=== PATIENT | female | born 2000 | race Hispanic/Latino ===

== ENCOUNTER 2019-10-29 18:17 | Emergency (ER) | payer OTHER ==
[~2019-10-29] VITALS: Ht 149.9 cm; Wt 74.8 kg
[~2019-10-29 18:17] MED LIST: NO MEDS
--- OUTSIDE RECORDS SUMMARY | 2019-10-29 18:19 | XMS REPORT ---
Author Author [facility] Address Unknown Phone Unavailable Care Team Providers Care Salvager Name Role Phone Unavailable Unavailable Payers Payer Name Policy Type Policy Number Effective Date Expiration Date Problems This patient has no known problems. Allergies, Adverse Reactions, Alerts Allergy Name Allergy Type Status Severity Reaction(s) Onset Date Inactive Date Treating Clinician Comments No Known Allergies DA Active U 2019-10-01 00:00:00 No Known Allergies DA Active U 2019-08-22 00:00:00 No Known Allergies DA Active U 2018-11-29 00:00:00 No Known Allergies DA Active U 2018-05-19 00:00:00 No Known Allergies DA Active U 2018-01-08 00:00:00 Medications This patient has no known medications. Results Test Description Test Time Test Comments Text Results Atomic Results Result Comments CBC W/AUTO DIFF 2019-10-03 07:18:00 WHITE BLOOD CELL (test code=WBC) 20.90 x10 3/uL 4.5-11.0 RED BLOOD CELL (test code=RBC) 3.36 x10 6/uL 3.54-5.02 HEMOGLOBIN (test code=HGB) 9.5 g/dL 11.0-15.0 HEMATOCRIT (test code=HCT) 30.2 % 33.0-45.0 MEAN CELL VOLUME (test code=MCV) 89.9 fL 81.0-99.0 MEAN CELL HGB (test code=MCH) 28.3 pg 27.0-33.0 MEAN CELL HGB CONCETRATION (test code=MCHC) 31.5 g/dL 33.0-37.0 RED CELL DISTRIBUTION WIDTH CV (test code=RDW) 14.2 % 11.5-14.5 RED CELL DISTRIBUTION WIDTH SD (test code=RDW-SD) 45.7 fL 37.0-54.0 PLATELET COUNT (test code=PLT) 277 x10 3/uL 150-400 MEAN PLATELET VOLUME (test code=MPV) 9.2 fL 7.0-9.0 NEUTROPHIL % (test code=NT%) 77.9 % 56.0-77.0 IMMATURE GRANULOCYTE % (test code=IG%) 0.6 % 0.0-2.0 LYMPHOCYTE % (test code=LY%) 14.5 % 14.0-32.0 MONOCYTE % (test code=MO%) 6.6 % 4.8-9.0 EOSINOPHIL % (test code=EO%) 0.2 % 0.3-3.7 BASOPHIL % (test code=BA%) 0.2 % 0.0-2.0 NUCLEATED RBC % (test code=NRBC%) 0.0 % 0-0 NEUTROPHIL # (test code=NT#) 16.26 x10 3/uL 2.0-7.6 IMMATURE GRANULOCYTE # (test code=IG#) 0.13 x10 3/uL 0.00-0.03 LYMPHOCYTE # (test code=LY#) 3.04 x10 3/uL 1.0-3.8 MONOCYTE # (test code=MO#) 1.38 x10 3/uL 0.1-0.8 EOSINOPHIL # (test code=EO#) 0.04 x10 3/uL 0.0-0.2 BASOPHIL # (test code=BA#) 0.05 x10 3/uL 0.0-0.2 NUCLEATED RBC # (test code=NRBC#) 0.00 x10 3/uL 0.0-0.1 MANUAL DIFF REQUIRED (test code=MDIFF) NO CBC W/AUTO [id number] 16:11:00* Test Item Value Reference Range Comments WHITE BLOOD CELL (test code=WBC) 12.42 x10 3/uL 4.5-11.0 RED BLOOD CELL (test code=RBC) 3.95 x10 6/uL 3.54-5.02 HEMOGLOBIN (test code=HGB) 11.4 g/dL 11.0-15.0 HEMATOCRIT (test code=HCT) 35.3 % 33.0-45.0 MEAN CELL VOLUME (test code=MCV) 89.4 fL 81.0-99.0 MEAN CELL HGB (test code=MCH) 28.9 pg 27.0-33.0 MEAN CELL HGB CONCETRATION (test code=MCHC) 32.3 g/dL 33.0-37.0 RED CELL DISTRIBUTION WIDTH CV (test code=RDW) 13.9 % 11.5-14.5 RED CELL DISTRIBUTION WIDTH SD (test code=RDW-SD) 44.8 fL 37.0-54.0 PLATELET COUNT (test code=PLT) 341 x10 3/uL 150-400 MEAN PLATELET VOLUME (test code=MPV) 8.6 fL 7.0-9.0 NEUTROPHIL % (test code=NT%) 70.1 % 56.0-77.0 IMMATURE GRANULOCYTE % (test code=IG%) 0.4 % 0.0-2.0 LYMPHOCYTE % (test code=LY%) 23.1 % 14.0-32.0 MONOCYTE % (test code=MO%) 5.6 % 4.8-9.0 EOSINOPHIL % (test code=EO%) 0.6 % 0.3-3.7 BASOPHIL % (test code=BA%) 0.2 % 0.0-2.0 NUCLEATED RBC % (test code=NRBC%) 0.0 % 0-0 NEUTROPHIL # (test code=NT#) 8.71 x10 3/uL 2.0-7.6 IMMATURE GRANULOCYTE # (test code=IG#) 0.05 x10 3/uL 0.00-0.03 LYMPHOCYTE # (test code=LY#) 2.87 x10 3/uL 1.0-3.8 MONOCYTE # (test code=MO#) 0.69 x10 3/uL 0.1-0.8 EOSINOPHIL # (test code=EO#) 0.07 x10 3/uL 0.0-0.2 BASOPHIL # (test code=BA#) 0.03 x10 3/uL 0.0-0.2 NUCLEATED RBC # (test code=NRBC#) 0.00 x10 3/uL 0.0-0.1 MANUAL DIFF REQUIRED (test code=MDIFF) NO RAPID PLASMA [id number] 11:54:00* Test Item Value Reference Range Comments RAPID PLASMA REAGIN (test code=RPR) NONREACTIVE NONREACTIVE AG HEPATITIS B [id number] 11:54:00* Test Item Value Reference Range Comments AG HEPATITIS B SURFACE (test code=HBSAG) NON REACTIVE INDEX NonReactive AB HIV 1 11:54:00* Test Item Value Reference Range Comments AB HIV 1 2 (test code=RFJ06ER) NONREACTIVE INDEX NONREACTIVE RAPID PLASMA [id number] 15:01:00* Test Item Value Reference Range Comments RAPID PLASMA REAGIN (test code=RPR) NONREACTIVE AG HEPATITIS B [id number] 15:01:00* Test Item Value Reference Range Comments AG HEPATITIS B SURFACE (test code=HBSAG) NON REACTIVE INDEX NonReactive AB HIV 1 15:01:00* Test Item Value Reference Range Comments AB HIV 1 2 (test code=QRM65YC) NONREACTIVE INDEX NONREACTIVE RAPID PLASMA [id number] 12:01:00* Test Item Value Reference Range Comments RAPID PLASMA REAGIN (test code=RPR) NONREACTIVE AG HEPATITIS B [id number] 12:01:00* Test Item Value Reference Range Comments AG HEPATITIS B SURFACE (test code=HBSAG) NON REACTIVE INDEX NonReactive AB HIV 1 12:01:00* Test Item Value Reference Range Comments AB HIV 1 2 (test code=MND79CT) INDEX NONREACTIVE CBC W/AUTO [id number] 11:26:00* Test Item Value Reference Range Comments WHITE BLOOD CELL (test code=WBC) 12.52 x10 3/uL 4.5-11.0 RED BLOOD CELL (test code=RBC) 4.04 x10 6/uL 3.54-5.02 HEMOGLOBIN (test code=HGB) 11.4 g/dL 11.0-15.0 HEMATOCRIT (test code=HCT) 36.4 % 33.0-45.0 MEAN CELL VOLUME (test code=MCV) 90.1 fL 81.0-99.0 MEAN CELL HGB (test code=MCH) 28.2 pg 27.0-33.0 MEAN CELL HGB CONCETRATION (test code=MCHC) 31.3 g/dL 33.0-37.0 RED CELL DISTRIBUTION WIDTH CV (test code=RDW) 13.7 % 11.5-14.5 RED CELL DISTRIBUTION WIDTH SD (test code=RDW-SD) 44.8 fL 37.0-54.0 PLATELET COUNT (test code=PLT) 370 x10 3/uL 150-400 MEAN PLATELET VOLUME (test code=MPV) 8.7 fL 7.0-9.0 NEUTROPHIL % (test code=NT%) 71.1 % 56.0-77.0 IMMATURE GRANULOCYTE % (test code=IG%) 0.7 % 0.0-2.0 LYMPHOCYTE % (test code=LY%) 21.9 % 14.0-32.0 MONOCYTE % (test code=MO%) 5.4 % 4.8-9.0 EOSINOPHIL % (test code=EO%) 0.6 % 0.3-3.7 BASOPHIL % (test code=BA%) 0.3 % 0.0-2.0 NUCLEATED RBC % (test code=NRBC%) 0.0 % 0-0 NEUTROPHIL # (test code=NT#) 8.91 x10 3/uL 2.0-7.6 IMMATURE GRANULOCYTE # (test code=IG#) 0.09 x10 3/uL 0.00-0.03 LYMPHOCYTE # (test code=LY#) 2.74 x10 3/uL 1.0-3.8 MONOCYTE # (test code=MO#) 0.67 x10 3/uL 0.1-0.8 EOSINOPHIL # (test code=EO#) 0.07 x10 3/uL 0.0-0.2 BASOPHIL # (test code=BA#) 0.04 x10 3/uL 0.0-0.2 NUCLEATED RBC # (test code=NRBC#) 0.00 x10 3/uL 0.0-0.1 MANUAL DIFF REQUIRED (test code=MDIFF) NO AMNISURE (ROM) [id number] 09:01:00* Test Item Value Reference Range Comments AMNISURE (ROM) TEST (test code=AMNI) NEGATIVE NEGATIVE OPENED:07-25-2019 BASIC METABOLIC [id number] 15:07:00* Test Item Value Reference Range Comments SODIUM (test code=NA) 136 mEq/L 134-147 POTASSIUM (test code=K) 3.8 mEq/L 3.4-5.0 CHLORIDE (test code=CL) 105 mEq/L 100-108 CARBON DIOXIDE (test code=CO2) 25 mEq/L 21-33 ANION GAP (test code=GAP) 10 0-20 GLUCOSE (test code=GLU) 81 mg/dL 70-110 BLOOD UREA NITROGEN (test code=BUN) 12 mg/dL 7-18 GLOMERULAR FILTRATION RATE (test code=GFR) 128.8 110-120 Units of measure=ml/min/1.73 m2 CREATININE (test code=CREAT) 0.6 mg/dL 0.6-1.3 CALCIUM (test code=CA) 9.1 mg/dL 8.0-10.5 Is patient ? YHOW MANY WEEKS? 5 WEEKSHCG [id number] 15:07:00* Test Item Value Reference Range Comments HCG SERUM (test code=HCG) < 1 0 - 6 NOT > 6 SUGGESTIVE OF EARLY RISES TWO FOLD EVERY 2 DAYS; SUGGEST RE CONFIRMING AFTER 2 DAYS. 150,000-200,[address] TRIMESTER 10,000 - 50,000 2ND & 3RD TRIMESTERResults in harshal-International Units/mL Is patient ? YHOW MANY WEEKS? 5 WEEKSBASIC METABOLIC [id number] 15:04:00* Test Item Value Reference Range Comments SODIUM (test code=NA) 136 mEq/L 134-147 POTASSIUM (test code=K) 3.8 mEq/L 3.4-5.0 CHLORIDE (test code=CL) 105 mEq/L 100-108 CARBON DIOXIDE (test code=CO2) 25 mEq/L 21-33 ANION GAP (test code=GAP) 10 0-20 GLUCOSE (test code=GLU) 81 mg/dL 70-110 BLOOD UREA NITROGEN (test code=BUN) 12 mg/dL 7-18 GLOMERULAR FILTRATION RATE (test code=GFR) 128.8 110-120 Units of measure=ml/min/1.73 m2 CREATININE (test code=CREAT) 0.6 mg/dL 0.6-1.3 CALCIUM (test code=CA) 9.1 mg/dL 8.0-10.5 Is patient ? YHOW MANY WEEKS? 5 WEEKSHCG [id number] 15:04:00* Test Item Value Reference Range Comments HCG SERUM (test code=HCG) Is patient ? YHOW MANY WEEKS? 5 WEEKS- US TRANSVAGINAL NON [id number] 15:03:00 Name: CHINTAN ARMIJO [facility] José Miguel Urbina : 2000 Age/S: 18 / F [address] [place] [address] Unit #: [id number] Loc: [place] [address] Phys: Don Ireland DO Acct: [id number] Dis Date: Status: REG ER PHONE #: [phone] Exam Date: 10/08/2018 1440 FAX #: [phone] Reason: PELVIC PAIN, SPOTTING EXAMS: CPT CODE: [id number] [place] [address] TRANSABDOMINAL TRANSVAGINAL PELVIC ULTRASOUND. HISTORY: Pelvic pain and bleeding. Last menstrual period 09/07/2018. Serum beta hCG result pending. COMPARISON: No priors available. TRANSABDOMINAL IMAGES: The uterus is 6.3 x 3.8 x 4.5 cm. The endometrial stripe is not adequately visualized on transabdominal images. The right ovary is 3.0 x 2.0 x 2.8 cm. The left ovary is 3.6 x 1.9 x 3.0 cm. Blood flow documented to both ovaries on Doppler ultrasound images. No pelvic fluid collections. Transvaginal imaging will be performed to evaluate the endometrial stripe and better evaluate both ovaries. TRANSVAGINAL IMAGES: On transvaginal images the endometrial stripe is 4 mm thick and homogeneous. No intrauterine gestational sac seen. The right ovary is 3.6 x 1.9 x 3.0 cm. Multiple very small follicular cysts. The left ovary is 2.2 x 1.8 x 2.5 cm. There are several follicular cysts within the left ovary is well. There is blood flow to each ovary on Doppler ultrasound images. There is no free pelvic fluid. IMPRESSION: 1. No evidence for intrauterine . Endometrial stripe is normal in appearance and not thickened. 2. Multiple follicular cyst right ovary and a few less in the left ovary. END IMPRESSION SL: [id number] at 1503 Reported and signed by: Shahram Martinez M.D. PAGE 1 Signed Report (CONTINUED) Name: CHINTAN ARMIJO : 2000 Age/S: 18 / F [address] [place] [address] Unit #: [id number] Loc: [place] [address] Phys: BekaDonslick HOLCOMB Acct: [id number] Dis Date: Status: REG ER PHONE #: [phone] Exam Date: 10/08/2018 1449 FAX #: [phone] Reason: PELVIC PAIN, SPOTTING EXAMS: CPT CODE: [id number] [place] [address] < Continued> CC: Don Ireland DO Technologist: Ana Cristina Posadas RDMS(AB)(OB) Trnscb Date/Time: 10/08/2018 (1503) [email or web address] Orig Print D/T: S: 10/08/2018 (1506) Probe: [id number] PAGE 2 Signed Report - US PELVIS [id number] 15:03:00 Name: CHINTAN ARMIJO : 2000 Age/S: 18 / F [address] [place] [address] Unit #: [id number] Loc: [place] [address] Phys: Don Ireland DO Acct: [id number] Dis Date: Status: REG ER PHONE #: [phone] Exam Date: 10/08/2018 1449 FAX #: [phone] Reason: Pelvic Pain, bleeding EXAMS: CPT CODE: [id number] US PELVIS COMPLETE 48000 TRANSABDOMINAL TRANSVAGINAL PELVIC ULTRASOUND. HISTORY: Pelvic pain and bleeding. Last menstrual period 09/07/2018. Serum beta hCG result pending. COMPARISON: No priors available. TRANSABDOMINAL IMAGES: The uterus is 6.3 x 3.8 x 4.5 cm. The endometrial stripe is not adequately visualized on transabdominal images. The right ovary is 3.0 x 2.0 x 2.8 cm. The left ovary is 3.6 x 1.9 x 3.0 cm. Blood flow documented to both ovaries on Doppler ultrasound images. No pelvic fluid collections. Transvaginal imaging will be performed to evaluate the endometrial stripe and better evaluate both ovaries. TRANSVAGINAL IMAGES: On transvaginal images the endometrial stripe is 4 mm thick and homogeneous. No intrauterine gestational sac seen. The right ovary is 3.6 x 1.9 x 3.0 cm. Multiple very small follicular cysts. The left ovary is 2.2 x 1.8 x 2.5 cm. There are several follicular cysts within the left ovary is well. There is blood flow to each ovary on Doppler ultrasound images. There is no free pelvic fluid. IMPRESSION: 1. No evidence for intrauterine . Endometrial stripe is normal in appearance and not thickened. 2. Multiple follicular cyst right ovary and a few less in the left ovary. END IMPRESSION SL: [id number] at 1503 Reported and signed by: Shahram Martinez M.D. PAGE 1 Signed Report (CONTINUED) Name: CHINTAN ARMIJO [facility] : 2000 Age/S: 18 / F [address] [place] [address] Unit #: [id number] Loc: [place] [address] Phys: Don Ireland DO Acct: [id number] Dis Date: Status: REG ER PHONE #: [phone] Exam Date: 10/08/2018 1449 FAX #: [phone] Reason: Pelvic Pain, bleeding EXAMS: CPT CODE: [id number] US PELVIS COMPLETE 96827 < Continued> CC: Don Ireland DO Technologist: Ana Cristina Posadas RDMS(AB)(OB) Trnscb Date/Time: 10/08/2018 (1503) [email or web address] Orig Print D/T: S: 10/08/2018 (6074) Probe: PAGE 2 Signed Report URINALYSIS [id number] 14:28:00* Test Item Value Reference Range Comments UA COLOR (test code=COLU) YELLOW YEL/STRAW UA APPEARANCE (test code=APPU) SL CLOUDY CLEAR UA GLUCOSE DIPSTICK (test code=DGLUU) NEGATIVE NEGATIVE UA BILIRUBIN DIPSTICK (test code=BILU) NEGATIVE NEGATIVE UA KETONE DIPSTICK (test code=KETU) TRACE NEGATIVE UA SPECIFIC GRAVITY (test code=SGU) 1.025 1.005-1.030 UA BLOOD DIPSTICK (test code=NIC) 3+ NEGATIVE UA PH DIPSTICK (test code=EDENILSON) 5.0 5.0-7.0 UA PROTEIN DIPSTICK (test code=PROU) NEGATIVE NEGATIVE UA UROBILINIOGEN DIPSTICK (test code=URO) 0.2 mg/dL 0.2-1.0 UA NITRITE DIPSTICK (test code=NEGRITA) NEGATIVE NEGATIVE UA LEUKOCYTE ESTERASE DIPSTICK (test code=LEUU) NEGATIVE NEGATIVE UA WBC (test code=WBCU) 0-3 WBC/HPF 0-3 UA RBC (test code=RBCU) 0-3 RBC/HPF 0-3 UA BACTERIA (test code=BACU) TRACE /HPF NONE SEEN UA SQUAMOUS CELLS (test code=SQU) 0-5 /HPF NONE SEEN UA MUCUS (test code=MUCU) TRACE /LPF NONE SEEN COMMENTS: Clean CatchCBC W/AUTO [id number] 14:26:00* Test Item Value Reference Range Comments WHITE BLOOD CELL (test code=WBC) 8.92 x10 3/uL 4.5-11.0 RED BLOOD CELL (test code=RBC) 4.78 x10 6/uL 3.54-5.02 HEMOGLOBIN (test code=HGB) 14.5 g/dL 11.0-15.0 HEMATOCRIT (test code=HCT) 42.8 % 33.0-45.0 MEAN CELL VOLUME (test code=MCV) 89.5 fL 81.0-99.0 MEAN CELL HGB (test code=MCH) 30.3 pg 27.0-33.0 MEAN CELL HGB CONCETRATION (test code=MCHC) 33.9 g/dL 33.0-37.0 RED CELL DISTRIBUTION WIDTH CV (test code=RDW) 12.0 % 11.5-14.5 RED CELL DISTRIBUTION WIDTH SD (test code=RDW-SD) 39.8 fL 37.0-54.0 PLATELET COUNT (test code=PLT) 360 x10 3/uL 150-400 MEAN PLATELET VOLUME (test code=MPV) 9.2 fL 7.0-9.0 NEUTROPHIL % (test code=NT%) 66.6 % 56.0-77.0 IMMATURE GRANULOCYTE % (test code=IG%) 0.3 % 0.0-2.0 LYMPHOCYTE % (test code=LY%) 27.1 % 14.0-32.0 MONOCYTE % (test code=MO%) 4.6 % 4.8-9.0 EOSINOPHIL % (test code=EO%) 1.0 % 0.3-3.7 BASOPHIL % (test code=BA%) 0.4 % 0.0-2.0 NUCLEATED RBC % (test code=NRBC%) 0.0 % 0-0 NEUTROPHIL # (test code=NT#) 5.93 x10 3/uL 2.0-7.6 IMMATURE GRANULOCYTE # (test code=IG#) 0.03 x10 3/uL 0.00-0.03 LYMPHOCYTE # (test code=LY#) 2.42 x10 3/uL 1.0-3.8 MONOCYTE # (test code=MO#) 0.41 x10 3/uL 0.1-0.8 EOSINOPHIL # (test code=EO#) 0.09 x10 3/uL 0.0-0.2 BASOPHIL # (test code=BA#) 0.04 x10 3/uL 0.0-0.2 NUCLEATED RBC # (test code=NRBC#) 0.00 x10 3/uL 0.0-0.1 MANUAL DIFF REQUIRED (test code=MDIFF) NO
[2019-10-29] MEDS ORDERED: PANTOPRAZOLE 40 MG 10ML VIAL IV STA (18:23)
[2019-10-29] MEDS ORDERED: ONDANSETRON HCL INJ 2MG/ML 2ML 2 MG/ML VIAL IV STA (18:23)
[2019-10-29] MEDS ORDERED: SODIUM CHLORIDE 0.9% 1000ML 1,000 ML IV STA (18:23)
[2019-10-29] MEDS ORDERED: MAGNESIUM/ALUMINUM/SIMETHICONE 30 ML UDC PO ONE (18:30)
[2019-10-29] MEDS ORDERED: LIDOCAINE VISC 2% SOLN 15 ML UDC PO ONE (18:30)
[2019-10-29 18:45] LABS: BASOPHILS % 0.3 % (0.0-1.0); EOSINOPHILS # (AUTO) 0.1 (0.0-0.4); HEMATOCRIT 39.1 % (34.2-44.1); HEMOGLOBIN 12.6 g/dL (12.0-16.0); LYMPHOCYTES # (AUTO) 2.5 (1.0-3.2); LYMPHOCYTES % 25.9 % (18.0-39.1); MEAN CORPUSCULAR HEMOGLOBIN 27.9 pg (28-32); MEAN CORPUSCULAR HGB CONC 32.2 g/dL (31-35); MEAN CORPUSCULAR VOLUME 86.7 fL (81-99); MONOCYTES # (AUTO) 0.6 (0.2-0.8); MONOCYTES % 5.7 % (4.4-11.3); NEUTROPHILS # (AUTO) 6.5 (2.1-6.9); NEUTROPHILS % 66.9 % (38.7-80.0); PLATELET COUNT 344 x10e3/uL (140-360); RED BLOOD COUNT 4.51 x10e6/uL (3.6-5.1); RED CELL DISTRIBUTION WIDTH 13.7 % (11.7-14.4)
[2019-10-29] MEDS ORDERED: BELLADONNA ALK/PHENOBARBITAL 5 ML UDC PO ONE (19:00)
[2019-10-29 19:02] LABS: ALANINE AMINOTRANSFERASE 75 IU/L (0-55); ALBUMIN 4.3 g/dL (3.5-5.0); ALBUMIN/GLOBULIN RATIO 1.4 (0.8-2.0); ALKALINE PHOSPHATASE 143 IU/L (40-150); AMYLASE 54 U/L (25-125); BLOOD UREA NITROGEN 11 mg/dL (7-26); BUN/CREATININE RATIO 16 (6-25); CALCIUM 9.7 mg/dL (8.4-10.2); CARBON DIOXIDE 29 mmol/L (22-29); CHLORIDE 106 mmol/L (98-107); CREATININE, SERUM 0.69 mg/dL (0.57-1.11); EST GLOMERULAR FILTRATION RATE > 60 ML/MIN (60-); GLUCOSE 88 mg/dL (74-118); LIPASE 37 U/L (8-78); SODIUM 142 mmol/L (136-145)
--- NOTE | 2019-10-29 20:20 | Diagnostic Imaging Report ---
EXAM: Right Upper Quadrant Ultrasound INDICATION: ^ABD PAIN ^[id number] ^1927 ^Y COMPARISON: None. TECHNIQUE: Transverse and longitudinal images of the right upper abdomen were obtained. FINDINGS: Liver: Size: 13.9 cm in the right midclavicular line, normal Appearance: Normal echogenicity, smooth contour Mass: No focal masses Gallbladder: Stones/Sludge: Small layering shadowing gallstones. Wall: 0.2 cm Appearance: No pericholecystic fluid or hydrops. Sonographic Mcpherson's Sign: Negative Bile Ducts: Intrahepatic Ducts: No dilatation Extrahepatic Ducts: Common bile duct measures 0.3 cm, no dilatation Pancreas: Not well-visualized. Right Kidney: Size: 10.9 cm Echogenicity: Normal Parenchymal thickness: Normal Collecting system: No hydronephrosis Stones: None Cyst/Mass: None Vessels: Aorta: Visualized portions are normal Inferior Vena Cava: Visualized portions are normal Main Portal Vein: 0.9 cm, normal size with hepatopetal flow. Free Fluid: No ascites or pleural effusion IMPRESSION: Cholelithiasis without evidence of cholecystitis. Signed by: Dr. Surendra Aiken MD on 10/29/2019 8:17 PM
[2019-10-29] MEDS ORDERED: BELLADONNA ALK/PHENOBARBITAL 5 ML UDC PO SCH (21:00)
[2019-10-29 21:05] VITALS: BP 122/72
== END 2019-10-29 21:07 | disposition home or self-care (01) ==
LOC: ER 18:17
DX: R10.11 Right upper quadrant pain (principal); R10.13 Epigastric pain; R11.2 Nausea with vomiting, unspecified; K80.20 Calculus of gallbladder without cholecystitis without obstruction
CPT/HCPCS: 36415; 76705; 80053; 82150; 83690; 85025; 99283; C9113; J2405; J7030